=== PATIENT | male | born 1970 | race Caucasian/White ===

== ENCOUNTER 2016-06-02 01:34 | Emergency (ER) | payer OTHER ==
[~2016-06-02] VITALS: Ht 188 cm; Wt 122.5 kg
[~2016-06-02 01:34] MED LIST: ALBU8.5H3 IH; ALPR0.5T PO; HYDR-3720 PO; IBUP-1542 PO; OXYM30MI NS
[2016-06-02 02:03] VITALS: Ht 188 cm; Wt 122.5 kg
[2016-06-02] MEDS ORDERED: morphine 4 MG/ML VIAL IV STA (02:13)
[2016-06-02] MEDS ORDERED: ONDANSETRON 4 MG INJ IV STA (02:13)
[2016-06-02] MEDS ORDERED: KETOROLAC 30 MG INJ IV STA (02:13)
[2016-06-02] MEDS ORDERED: SOD CHLORIDE 0.9% 1,000 ML IV ONE (02:20)
[2016-06-02 03:24] LABS: BASOPHILS % 0.5 % (0.0-2.0); EOSINOPHILS # 0.2 10^3/ul (0.0-0.5); EOSINOPHILS % 1.8 % (0.0-7.0); HEMATOCRIT 45.4 % (42.0-52.0); HEMOGLOBIN 15.5 g/dl (14.0-18.0); LYMPHOCYTES # 1.5 10^3/ul (0.8-2.9); LYMPHOCYTES % 16.5 % (15.0-51.0); MEAN CORPUSCULAR HEMOGLOBIN 31.1 pg (29.0-33.0); MEAN CORPUSCULAR HGB CONC 34.2 g/dl (32.0-37.0); MEAN CORPUSCULAR VOLUME 90.8 fl (82.0-101.0); MEAN PLATELET VOLUME 8.2 fl (7.4-10.4); MONOCYTE # 0.6 10^3/ul (0.3-0.9); MONOCYTES % 7.1 % (0.0-11.0); NEUTROPHIL # 6.7 10^3/ul (1.6-7.5); NEUTROPHILS % 74.1 % (39.0-77.0); PLATELET COUNT 225 10^3/UL (140-440); RED CELL DISTRIBUTION WIDTH 13.7 % (11.5-14.5)
[2016-06-02 03:25] LABS: CONDITION 1
[2016-06-02 03:40] LABS: ALBUMIN 4.5 g/dl (3.3-4.9)
[2016-06-02 03:41] LABS: POTASSIUM 3.8 mmol/L (3.5-5.1)
[2016-06-02 03:43] LABS: ALBUMIN/GLOBULIN RATIO 1.25; BILIRUBIN,INDIRECT 0.5 mg/dl (0-1.1); BILIRUBIN,TOTAL 0.5 mg/dl (0.2-1.3); CREATININE 0.95 mg/dl (0.61-1.24); TOTAL PROTEIN 8.1 g/dl (6.1-8.1)
[2016-06-02 03:44] LABS: CALCIUM 9.4 mg/dl (8.4-10.2)
--- NOTE | 2016-06-02 04:03 | RADRPT ---
PROCEDURE: CT Abdomen and pelvis without contrast. CLINICAL INDICATION: Abdominal pain. TECHNIQUE: CT scan of the abdomen and pelvis was performed on a multi-detector high-resolution CT scanner. Contiguous axial images were obtained from the lung bases to the ischial tuberosities wit hout intravenous contrast. Coronal and sagittal reformatted images were also obtained. Images were reviewed on the PACS workstation. One or more of the following dose reduction techniques were used: - Automated exposure control. - Adjustment of the mA and/or kV according to patient size. - Use of iterative reconstruction technique. Exam CTD/vol = 20.95 mGy. Total exam DLP = 1575.16 mGy-cm. COMPARISON: None. FINDINGS: Evaluation of the lung bases demonstrates no pleural or parenchymal disease. Abdomen: The liver is normal in size and diffusely low in attenuation consistent with fatty infiltr ation. There is no focal mass or dilatation of the biliary tree. The gallbladder is not distended. The spleen, pancreas and bilateral adrenal glands are within normal limits. Bilateral kidneys are normal in size with no contour deforming mass identified. There is a 3 x 2 mm calculus within the mid right kidney. There is mild left-sided hydronephrosis with mild perinephric stranding.. There is no retroperitoneal adenopathy. The abdominal aorta is of normal caliber. There is no abnormal bowel wall thickening or distension. There is no bowel obstruction or free air . A normal appendix is identified. There is no diverticulosis or diverticulitis. There is no asci jesusita. Pelvis: The bladder is unremarkable. There is a 2 mm calculus at the left ureterovesicular junctio n. The prostate and seminal vesicles are within normal limits. There is no significant pelvic chetan opathy or free fluid. Evaluation of the osseous structures demonstrates no suspicious lytic or blastic lesion. The patient is status post total right hip arthroplasty. IMPRESSION: Left ureterovesicular junction 2 mm calculus with mild left-sided hydronephrosis. Nonobstructing right renal calculus. Fatty infiltration of the liver. .Soren Turcios MD, MD Date Time Electronically viewed and signed by .Soren Turcios MD, MD on 06/02/2016 04:03 .T/
--- NOTE | 2016-06-02 05:21 | ERD ---
ER Documentation Chief Complaint Date/Time DATE: 06/02/16 TIME: 05:20 Chief Complaint left flank pain since 2 hours ago HPI This is a 45-year-old male s was a left l flank pain for the past 2 hours. Sudden onset of pain. Pain is mild to moderate intensity. Pain comes otherwise. Mild associated nausea. No vomiting. No fevers no chills. No other current complaints. ROS All systems reviewed and are negative except as per history of present illness. Medications Home Meds Reported Medications Albuterol Sulfate* (Proair HFA*) 8.5 Gm Hfa.aer.ad, 8.5 GM IH 08/03/13 Oxymetazoline Hcl (Nasal [place]) 30 Ml Mist, 30 ML NS 08/03/13 Alprazolam* (Xanax*) 0.5 Mg Tab, 0.5 MG PO, TAB 08/03/13 Hydrocodone Bit-Acetaminophen* ([place]*) 1 Tab Tab, 1 TAB PO Q4NARC Y for PAIN LEVEL 6-10, TAB 08/03/13 Ibuprofen* (Ibuprofen*) 600 Mg Tablet, 600 MG PO Q6 Y for PAIN LEVEL 1-5 08/03/13 Allergies Allergies: Coded Allergies: No Known Allergies (Verified Allergy, Unknown, 08/03/13) PMhx/Soc History of Surgery: Yes (RIGHT HIP REPLACEMENT) Anesthesia Reaction: No Hx Neurological Disorder: No Hx Respiratory Disorders: Yes (ASTHMA) Hx Cardiac Disorders: No Hx Psychiatric Problems: No Hx Miscellaneous Medical Probl: No Hx Alcohol Use: No Hx Substance Use: No Hx Tobacco Use: No Smoking Status: Former smoker Physical Exam Vitals Vital Signs Date Time Temp Pulse Resp B/P Pulse Ox O2 Delivery O2 Flow Rate FiO2 06/02/16 03:00 98.1 50 20 146/83 98 Room Air 06/02/16 02:03 98.1 50 20 180/88 98 Physical Exam Const: [] Head: Atraumatic Eyes: Normal Conjunctiva ENT: Normal External Ears, Nose and Mouth. Neck: Full range of motion..~ No meningismus. Resp: Clear to auscultation bilaterally Cardio: Regular rate and rhythm, no murmurs Abd: Soft, non tender, non distended. Normal bowel sounds Skin: No petechiae or rashes Back: No midline or flank tenderness Ext: No cyanosis, or edema Neur: Awake and alert Psych: Normal Mood and Affect Result Diagram: 06/02/16 0300 06/02/16 0300 Results 24 hrs Laboratory Tests Test 06/02/16 03:00 Alanine Aminotransferase (ALT/SGPT) 31IU/L Albumin 4.5g/dl Albumin/Globulin Ratio 1.25 Alkaline Phosphatase 71IU/L Anion Gap 20 Aspartate Amino Transf (AST/SGOT) 25IU/L Basophils # 0.010^3/ul Basophils % 0.5% Blood Urea Nitrogen 24mg/dl Calcium Level 9.4mg/dl Carbon Dioxide Level 24mmol/L Chloride Level 105mmol/L Creatinine 0.95mg/dl Direct Bilirubin 0.00mg/dl Eosinophils # 0.210^3/ul Eosinophils % 1.8% Globulin 3.60g/dl Glucose Level 97mg/dl Hematocrit 45.4% Hemoglobin 15.5g/dl Indirect Bilirubin 0.5mg/dl Lipase 117U/L Lymphocytes # 1.510^3/ul Lymphocytes % 16.5% Mean Corpuscular Hemoglobin 31.1pg Mean Corpuscular Hemoglobin Concent 34.2g/dl Mean Corpuscular Volume 90.8fl Mean Platelet Volume 8.2fl Monocytes # 0.610^3/ul Monocytes % 7.1% Neutrophils # 6.710^3/ul Neutrophils % 74.1% Nucleated Red Blood Cells # 0.010^3/ul Nucleated Red Blood Cells % 0.0/100WBC Platelet Count 70565^3/UL Potassium Level 3.8mmol/L Red Blood Count 5.0010^6/ul Red Cell Distribution Width 13.7% Sodium Level 145mmol/L Total Bilirubin 0.5mg/dl Total Protein 8.1g/dl White Blood Count 9.010^3/ul Current Medications Medications (Trade) Dose Ordered Sig/Tony Route PRN Reason Start Time Stop Time Status Last Admin Dose Admin Sodium Chloride (NS) 1,000 ml @ 1,000 mls/hr Q1H ONCE IV 06/02/16 02:20 06/02/16 03:19 DC 06/02/16 03:16 Morphine Sulfate (morphine) 4 mg ONCE STAT IV 06/02/16 02:13 06/02/16 02:14 DC 06/02/16 03:17 Ondansetron HCl (Zofran Inj) 4 mg ONCE STAT IV 06/02/16 02:13 06/02/16 02:14 DC 06/02/16 03:16 Ketorolac Tromethamine (Toradol) 30 mg ONCE STAT IV 06/02/16 02:13 06/02/16 02:14 DC 06/02/16 03:17 Procedures/MDM CBC: [no e/o of systemic infection or severe anemia] CMP: [no e/o severe acidosis, alkalosis, renal failure, diabetic ketoacidosis, liver disease] Lipase: [no e/o pancreatitis] PT/INR: [normal coagulation] Urine: [no e/o acute infection or hematuria] CT shows kidney stone stone at the left UVJ with mild hydronephrosis. Please see radiologist report is a full report Medical decision making: This patient comes in essentially renal colic. At this point patient clinically stable for outpatient management. Patient will be discharged home with Flomax, CresbardLeslyero. Follow-up in 8 hours for serial abdominal exams Departure Diagnosis: Primary Impression: Flank pain Additional Impression: Kidney stone Condition: Stable BLEIA SPANGLER Jun 02, 2016 05:21
[2016-06-02] MEDS ORDERED: CIPR500T4 PO (05:27)
[2016-06-02] MEDS ORDERED: TAMS-14 PO (05:27)
[2016-06-02] MEDS ORDERED: HYDR-902 PO (05:27)
[2016-06-02 05:42] VITALS: BP 150/79; PULSE 47; RESP 20; TEMP 98.1
[2016-06-02 06:52] LABS: ADD UMIC NO; URINE BILIRUBIN (Dip) NEGATIVE (NEGATIVE); URINE BLOOD (Dip) NEGATIVE (NEGATIVE); URINE COLOR LT. YELLOW (YELLOW); URINE GLUCOSE (Dip) NEGATIVE (NEGATIVE); URINE KETONES (Dip) TRACE (NEGATIVE); URINE LEUKOCYTE ESTERASE (Dip) NEGATIVE (NEGATIVE); URINE NITRITE (Dip) NEGATIVE (NEGATIVE); URINE TOTAL PROTEIN (Dip) NEGATIVE (NEGATIVE); URINE UROBILINOGEN (Dip) 0.2 E.U./dL (0.1-1.0)
== END 2016-06-02 05:42 | disposition home or self-care (01) ==
LOC: E/R 01:34
DX: R10.9 Unspecified abdominal pain (principal); N20.0 Calculus of kidney; R11.0 Nausea; J45.909 Unspecified asthma, uncomplicated; Z87.891 Personal history of nicotine dependence
CPT/HCPCS: 74176; 80053; 81003; 83690; 85025; 87086; J1885; J2270; J2405; J7030; 36415; 96374; 96375

== ENCOUNTER 2017-02-22 13:01 | Emergency (ER) | payer OTHER ==
[~2017-02-22] VITALS: Wt 119.1 kg
[~2017-02-22 13:01] MED LIST changes: +CIPR500T4 PO; +HYDR-902 PO; +TAMS-14 PO
[2017-02-22] MEDS ORDERED: ONDANSETRON 4 MG INJ IV STA (13:14)
[2017-02-22] MEDS ORDERED: KETOROLAC 30 MG INJ IV STA (13:14)
[2017-02-22] MEDS ORDERED: SOD CHLORIDE 0.9% 1,000 ML IV STA (13:14)
[2017-02-22 13:43] LABS: BASOPHIL # 0.1 10^3/ul (0.0-0.1); BASOPHILS % 0.5 % (0.0-2.0); EOSINOPHILS # 0.1 10^3/ul (0.0-0.5); HEMATOCRIT 45.7 % (42.0-52.0); HEMOGLOBIN 15.5 g/dl (14.0-18.0); LYMPHOCYTES # 1.7 10^3/ul (0.8-2.9); LYMPHOCYTES % 17.7 % (15.0-51.0); MEAN CORPUSCULAR HEMOGLOBIN 30.9 pg (29.0-33.0); MEAN CORPUSCULAR HGB CONC 33.9 g/dl (32.0-37.0); MEAN CORPUSCULAR VOLUME 91.2 fl (82.0-101.0); MEAN PLATELET VOLUME 9.5 fl (7.4-10.4); MONOCYTE # 0.5 10^3/ul (0.3-0.9); MONOCYTES % 5.4 % (0.0-11.0); NEUTROPHILS % 75.2 % (39.0-77.0); PLATELET COUNT 257 10^3/UL (140-415); RED BLOOD COUNT 5.01 10^6/ul (4.70-6.10); RED CELL DISTRIBUTION WIDTH 13.2 % (11.5-14.5); WHITE BLOOD COUNT 9.4 10^3/ul (4.8-10.8)
[2017-02-22 13:53] LABS: ADD UMIC YES; UR ASCORBIC ACID 20 mg/dL (NEGATIVE); UR BILIRUBIN (Dip) NEGATIVE (NEGATIVE); UR BLOOD (Dip) 3+ mg/dL (NEGATIVE); UR CLARITY CLEAR (CLEAR); UR COLOR YELLOW (YELLOW); UR GLUCOSE (Dip) NEGATIVE (NEGATIVE); UR KETONES (Dip) NEGATIVE (NEGATIVE); UR LEUKOCYTE ESTERASE (Dip) NEGATIVE Leu/ul (NEGATIVE); UR MUCUS FEW /HPF (NONE SEEN); UR NITRITE (Dip) NEGATIVE (NEGATIVE); UR RBC > 182 /HPF (0-5); UR SPECIFIC GRAVITY (Dip) 1.029 (1.003-1.030); UR TOTAL PROTEIN (Dip) 1+ mg/dl (NEGATIVE); UR UROBILINOGEN (Dip) 1+ mg/dL (NEGATIVE)
[2017-02-22 13:59] LABS: ALBUMIN 4.3 g/dl (3.3-4.9); ALBUMIN/GLOBULIN RATIO 1.02; BILIRUBIN,INDIRECT 0.4 mg/dl (0-1.1); BILIRUBIN,TOTAL 0.4 mg/dl (0.2-1.3); CALCIUM 9.4 mg/dl (8.4-10.2); CREATININE 1.11 mg/dl (0.61-1.24); POTASSIUM 4.1 mmol/L (3.5-5.1); TOTAL PROTEIN 8.5 g/dl (6.1-8.1)
--- NOTE | 2017-02-22 14:34 | RADRPT ---
PROCEDURE: CT abdomen and pelvis without IV contrast. CLINICAL INDICATION: Abdominal pain TECHNIQUE: CT scan of the abdomen and pelvis without contrast was performed on the [employer] volumetric [address] scanner. The patient was scanned without intravenous contrast. Coronal and sagittal refo rmatted images were obtained from the axial source images. The CTDI vol is 22.69 mGy and the DLP is 1583.68 mGy-cm. One or more of the following dose reduction techniques were used: Automated exposure control. Adjustment of the mA and/or kV according to patient size. Use of iterative reconstruction technique. COMPARISON: 06/02/2016 FINDINGS: CT abdomen: Mild atelectasis in the lingula is seen. The remaining lung bases are clear. The heart size is not enlarged and is without pericardial thickening or effusion. Calcified right hilar lymph nodes are se en once again. The liver is again noted to be enlarged fatty infiltration and is without focal mass or intrahepatic biliary dilatation. Mild splenomegaly is seen once again. The spleen is homogeneous in density. Th e stomach is grossly unremarkable. The pancreas as visualized is normal. The gallbladder and bilia ry tree are unremarkable and there is no evidence for common bile duct dilatation. The adrenal glan ds are symmetric and normal. The kidneys are symmetrically unremarkable as well. Mild right hydrour eteronephrosis is seen secondary to a 2 mm obstructing calculus in the proximal right ureter. No oth er renal calculus or left-sided obstructive uropathy or mass lesion is seen. The aorta is of normal in caliber. There is no retroperitoneal lymphadenopathy. The ubaldo hepatis region is clear. Sigmoid diverticulosis is seen without evidence of diverticulitis. The small and r emainder of the large bowel and mesentery, as visualized, are otherwise unremarkable. The normal madhav endix is identified. CT pelvis: The pelvic organs are normal. The pelvic sidewalls and inguinal regions are clear. No pelvic mass, lymphadenopathy, or free fluid is seen. No acute inflammation is seen. The urinary bladder is wit hin normal limits. Again seen is a right hip arthroplasty which is creating beam hardening artifact limiting evaluation of the pelvis. No osteolytic or osteoblastic lesion is detected. IMPRESSION: 1. Mild right hydroureteronephrosis secondary to a 2 mm obstructing calculus in the proximal right ureter. 2. Sigmoid diverticulosis without evidence of diverticulitis. 3. Hepatosplenomegaly with fatty infiltration of the liver again seen. RPTAT: HPNM Marcos Mora Physician Date Time Electronically viewed and signed by Marcos Mora Physician on 02/22/2017 14:33 /
[2017-02-22] MEDS ORDERED: TAMS-14 PO (15:05)
[2017-02-22] MEDS ORDERED: HYDR-906 PO (15:05)
[2017-02-22] MEDS ORDERED: IBUP-1542 PO (15:05)
--- NOTE | 2017-02-22 15:08 | ERD ---
ER Documentation Chief Complaint Chief Complaint ABD PAIN, BLOOD IN URINE, NO N/V/D HPI This 46-year-old male complains of sudden onset of right lower quadrant abdominal pain earlier today. Also noticed hematuria. Review of the records shows patient had a history of kidney stone within the last year although that was on the left side. Denies any fevers or vomiting. He was referred by primary doctor for evaluation of appendicitis. ROS All systems reviewed and are negative except as per history of present illness. Medications Home Meds Active Scripts Hydrocodone/Acetaminophen ([place] 5-325 Tablet) 1 Each Tablet, 1 TAB PO Q6H Y for PAIN, #12 TAB Prov:JOHNNIE ARVIZU MD 02/22/17 Ibuprofen* (Motrin*) 600 Mg Tab, 600 MG PO Q6, #20 TAB Prov:JOHNNIE ARVIZU MD 02/22/17 Tamsulosin Hcl* (Flomax*) 0.4 Mg Cap.er.24h, 0.4 MG PO QPM, #15 CAP Prov:JOHNNIE ARVIZU MD 02/22/17 Hydrocodone/Acetaminophen ([place] 10-325 Tablet) 1 Each Tablet, 1 TAB PO Q6H Y for PAIN, #20 TAB Prov:BELIA SPANGLER 06/02/16 Tamsulosin Hcl* (Flomax*) 0.4 Mg Cap.er.24h, 0.4 MG PO QPM, #14 CAP Prov:BELIA SPANGLER 06/02/16 Ciprofloxacin Hcl* (Ciprofloxacin Hcl*) 500 Mg Tablet, 500 MG PO BID for 3 Days , TAB Prov:BELIA SPANGLER 06/02/16 Reported Medications Albuterol Sulfate* (Proair HFA*) 8.5 Gm Hfa.aer.ad, 8.5 GM IH 08/03/13 Oxymetazoline Hcl (Nasal [place]) 30 Ml Mist, 30 ML NS 08/03/13 Alprazolam* (Xanax*) 0.5 Mg Tab, 0.5 MG PO, TAB 08/03/13 Hydrocodone Bit-Acetaminophen* ([place]*) 1 Tab Tab, 1 TAB PO Q4NARC Y for PAIN LEVEL 6-10, TAB 08/03/13 Ibuprofen* (Ibuprofen*) 600 Mg Tablet, 600 MG PO Q6 Y for PAIN LEVEL 1-5 08/03/13 Allergies Allergies: Coded Allergies: No Known Allergies (Verified Allergy, Unknown, 02/22/17) PMhx/Soc History of Surgery: Yes (RIGHT HIP REPLACEMENT) Anesthesia Reaction: No Hx Neurological Disorder: No Hx Respiratory Disorders: Yes (ASTHMA) Hx Cardiac Disorders: No Hx Psychiatric Problems: No Hx Miscellaneous Medical Probl: No Hx Alcohol Use: No Hx Substance Use: No Hx Tobacco Use: No Smoking Status: Never smoker Physical Exam Vitals Vital Signs Date Time Temp Pulse Resp B/P Pulse Ox O2 Delivery O2 Flow Rate FiO2 02/22/17 13:03 98.8 68 18 155/85 99 Physical Exam Const: [] Alert, obese, [id number]. Head: Atraumatic Eyes: Normal Conjunctiva ENT: Normal External Ears, Nose and Mouth. Neck: Full range of motion..~ No meningismus. Resp: Clear to auscultation bilaterally Cardio: Regular rate and rhythm, no murmurs Abd: Soft, in the right lower abdomen. No rebound. No CVA tenderness. No Arnold sign., non distended. Normal bowel sounds Skin: No petechiae or rashes Back: No midline or flank tenderness Ext: No cyanosis, or edema Neur: Awake and alert Psych: Normal Mood and Affect Result Diagram: 02/22/17 1325 02/22/17 1325 Results 24 hrs Laboratory Tests Test 02/22/17 13:25 White Blood Count 9.410^3/ul Red Blood Count 5.0110^6/ul Hemoglobin 15.5g/dl Hematocrit 45.7% Mean Corpuscular Volume 91.2fl Mean Corpuscular Hemoglobin 30.9pg Mean Corpuscular Hemoglobin Concent 33.9g/dl Red Cell Distribution Width 13.2% Platelet Count 60288^3/UL Mean Platelet Volume 9.5fl Neutrophils % 75.2% Lymphocytes % 17.7% Monocytes % 5.4% Eosinophils % 1.0% Basophils % 0.5% Nucleated Red Blood Cells % 0.0/100WBC Neutrophils # 7.010^3/ul Lymphocytes # 1.710^3/ul Monocytes # 0.510^3/ul Eosinophils # 0.110^3/ul Basophils # 0.110^3/ul Nucleated Red Blood Cells # 0.010^3/ul Urine Color YELLOW Urine Clarity CLEAR Urine pH 6.0 Urine Specific [place] 1.029 Urine Ketones NEGATIVEmg/dL Urine Nitrite NEGATIVEmg/dL Urine Bilirubin NEGATIVEmg/dL Urine Urobilinogen 1+mg/dL Urine Leukocyte Esterase NEGATIVELeu/ul Urine Microscopic RBC > 182/HPF Urine Microscopic WBC 0/HPF Urine Mucus FEW/HPF Urine Hemoglobin 3+mg/dL Urine Glucose NEGATIVEmg/dL Urine Total Protein 1+mg/dl Sodium Level 143mmol/L Potassium Level 4.1mmol/L Chloride Level 103mmol/L Carbon Dioxide Level 27mmol/L Anion Gap 17 Blood Urea Nitrogen 21mg/dl Creatinine 1.11mg/dl Glucose Level 100mg/dl Calcium Level 9.4mg/dl Total Bilirubin 0.4mg/dl Direct Bilirubin 0.00mg/dl Indirect Bilirubin 0.4mg/dl Aspartate Amino Transf (AST/SGOT) 21IU/L Alanine Aminotransferase (ALT/SGPT) 36IU/L Alkaline Phosphatase 77IU/L Total Protein 8.5g/dl Albumin 4.3g/dl Globulin 4.20g/dl Albumin/Globulin Ratio 1.02 Lipase 86U/L Current Medications Medications (Trade) Dose Ordered Sig/Tony Route PRN Reason Start Time Stop Time Status Last Admin Dose Admin Sodium Chloride (NS) 1,000 ml @ 1,000 mls/hr Q1H STAT IV 02/22/17 13:14 02/22/17 14:13 DC 02/22/17 13:22 Ondansetron HCl (Zofran Inj) 4 mg ONCE STAT IV 02/22/17 13:14 02/22/17 13:15 DC 02/22/17 13:22 Ketorolac Tromethamine (Toradol) 30 mg ONCE STAT IV 02/22/17 13:14 02/22/17 13:15 DC 02/22/17 13:22 Morphine Sulfate 4 mg 4 mg ONCE STAT IV 02/22/17 15:11 02/22/17 15:13 DC 02/22/17 15:24 Sodium Chloride (NS) 1,000 ml @ 0 mls/hr Q0M ONCE IV 02/22/17 15:12 02/22/17 15:15 DC 02/22/17 15:24 Procedures/MDM And shows hemoglobin and RBCs without white blood cells, nitrites or glucose. Patient was given 1 L normal saline IV, Toradol 30 mg IV and Zofran 4 mg IV as well as morphine 4 mg IV for persistent pain... CT abdomen pelvis shows a 2 mm stone with minimal hydronephrosis in the right UV junction. Patient had improved pain after observation treatment. Patient presents with right-sided renal colic without evidence of appendicitis, septic stone, obstruction, acute abdomen. He was treated with short course of [place], ibuprofen and Flomax instructions for fluids and further observation at home,, return precautions and primary care follow-up. The patient was stable with no new complaints during the ER course. Clinically, there is no current evidence to suggest meningitis, sepsis, acute abdomen, pneumonia, acute coronary syndrome, pulmonary embolism, or any other emergent condition appearing to require further evaluation or hospitalization. The patient should certainly return for any new or worsening symptoms per the aftercare instructions. They should otherwise follow-up with her primary care doctor for reevaluation this week. Departure Diagnosis: Primary Impression: Renal colic on right side Additional Impression: Abdominal pain Abdominal location: right lower quadrant Qualified Code: R10.31 - Right lower quadrant abdominal pain Condition: Stable Patient Instructions: Abdominal Pain, Kidney Stone W/ Colic Additional Instructions: CT shows 2 mm kidney stone in the area of pain. Drink plenty of fluids at home. Recheck with primary doctor. Return for fevers, vomiting, new symptoms. JOHNNIE ARVIZU MD Feb 22, 2017 15:08
[2017-02-22] MEDS ORDERED: morphine 4 MG/ML VIAL IV STA (15:11)
[2017-02-22] MEDS ORDERED: SOD CHLORIDE 0.9% 1,000 ML IV ONE (15:12)
== END 2017-02-22 16:26 | disposition home or self-care (01) ==
LOC: FTE 13:01
DX: N23 Unspecified renal colic (principal); J45.909 Unspecified asthma, uncomplicated; Z96.641 Presence of right artificial hip joint
CPT/HCPCS: 36415; 74176; 80053; 81001; 83690; 85025; 96374; 96375; J1885; J2270; J2405; J7030; Z7502

== ENCOUNTER 2017-06-25 20:06 | Emergency (ER) | END 2017-06-25 23:16 | disposition home or self-care (01) ==